=== PATIENT | male | born 1940 | race Caucasian/White ===

== ENCOUNTER 2022-08-15 11:45 | Inpatient (IN) | payer MEDICARE ==
[2022-08-15] MEDS ORDERED: Calcium Carbonate 500 MG ChewTAB PO PRN (18:56)
[2022-08-15] MEDS ORDERED: Ipratropium/Albuterol 3 ML NEB NEB PRN (18:56)
[2022-08-15] MEDS ORDERED: CEFAZOLIN 2 GM VIAL IVPB SCH (19:00)
[2022-08-15] MEDS ORDERED: BISMUTH SUBSALICYLATE 262 MG PO PRN (19:05)
[2022-08-15] MEDS: Acetaminophen 325 MG TAB PO PRN (21:26)
[2022-08-15] MEDS: Atorvastatin Calcium 40 MG TAB PO SCH (21:28)
[2022-08-15] MEDS: CEFAZOLIN 2 GM in Sodium Chloride 0.9% 100 ML IVPB SCH (21:29)
[2022-08-15] MEDS: Polyethylene Glycol 3350 17 GM Packet PO SCH (21:29)
[2022-08-15] MEDS: traZODone HCl 50 MG TAB PO PRN (23:58)
[2022-08-16] MEDS: Levothyroxine Sodium 88 MCG TAB PO SCH (05:56)
[2022-08-16] MEDS: CEFAZOLIN 2 GM in Sodium Chloride 0.9% 100 ML IVPB SCH ×3 (05:56→21:18)
[2022-08-16] MEDS: Acetaminophen 325 MG TAB PO PRN (05:56)
[2022-08-16] MEDS: Carvedilol 3.125 MG TAB PO SCH ×2 (09:03→17:00)
[2022-08-16] MEDS: Aspirin 81 mg Enteric Coated Tablet PO SCH (09:03)
[2022-08-16] MEDS: Clopidogrel Bisulfate 75 MG TAB PO SCH (09:03)
[2022-08-16] MEDS: Polyethylene Glycol 3350 17 GM Packet PO SCH ×2 (09:03→19:37)
[2022-08-16] MEDS: HYDROcodone/Acetaminophen 5/325 mg Tablet PO PRN (19:37)
[2022-08-16] MEDS: Atorvastatin Calcium 40 MG TAB PO SCH (19:37)
[2022-08-17] MEDS: CEFAZOLIN 2 GM in Sodium Chloride 0.9% 100 ML IVPB SCH ×3 (05:16→21:40)
[2022-08-17] MEDS: Levothyroxine Sodium 88 MCG TAB PO SCH (05:17)
[2022-08-17] MEDS: Acetaminophen 325 MG TAB PO PRN ×2 (08:04→21:40)
[2022-08-17] MEDS: Aspirin 81 mg Enteric Coated Tablet PO SCH (08:05)
[2022-08-17] MEDS: Clopidogrel Bisulfate 75 MG TAB PO SCH (08:05)
[2022-08-17] MEDS: Carvedilol 3.125 MG TAB PO SCH ×2 (08:05→16:43)
[2022-08-17] MEDS: Polyethylene Glycol 3350 17 GM Packet PO SCH ×2 (14:14→21:41)
[2022-08-17] MEDS ORDERED: DAPTOmycin 700 MG in Sodium Chloride 0.9% 100 ML IVPB SCH (17:00)
[2022-08-17] MEDS: Atorvastatin Calcium 40 MG TAB PO SCH (21:40)
[2022-08-18 05:15] LABS: #Eosinphils 0.1 thou/uL (0.0-0.7); #Monocytes 0.7 thou/uL (0.11-0.59); #Neutrophils 7.2 thou/uL (1.40-6.50); %Basophils 0.5 % (0.0-1.0); %Eosinophils 1.6 % (0.0-10.0); %Monocytes 7.6 % (0.0-10.0); %Neutrophils 79.3 % (42.0-75.0); Hemoglobin 7.3 g/dL (14.0-18.0); Mean Corpuscular HGB CONC 32.7 g/dL (32.0-36.0); Mean Corpuscular Hemoglobin 30.7 pg (27.0-31.0); Mean Corpuscular Volume 93.8 fl (78.0-98.0); Mean Platelet Volume 5.9 fL (7.4-10.4); Platelet Count 466 10x3/uL (130-400); RBC Distribution Width 16.5 % (11.5-14.5); Red Blood Cell (RBC) Count 2.37 mill/uL (4.70-6.10); White Blood Cell (WBC) Count 9.1 10x3/uL (4.8-10.8)
[2022-08-18 05:30] LABS: ALT (SGPT) Less than 7 U/L (8-55); AST (SGOT) 31 U/L (5-34); Albumin 2.4 g/dL (3.4-4.8); Alkaline Phosphatase 52 U/L (40-110); Anion Gap 12 mmol/L (10-20); BUN (Urea Nitrogen) 16 mg/dL (8.4-25.7); Bilirubin, Total 0.5 mg/dL (0.2-1.2); Calc. Creatinine Clearance 45 mL/min (70-130); Calcium 7.6 mg/dL (7.8-10.44); Carbon Dioxide 22 mmol/L (23-31); Chloride 106 mmol/L (98-107); Estimated GFR 87; Globulin 3.7 g/dL (2.4-3.5); Glucose 128 mg/dL (83-110); Potassium 3.7 mmol/L (3.5-5.1); Protein, Total 6.1 g/dL (5.8-8.1); Sodium 136 mmol/L (136-145)
[2022-08-18] MEDS: Levothyroxine Sodium 88 MCG TAB PO SCH (05:46)
[2022-08-18] MEDS: CEFAZOLIN 2 GM in Sodium Chloride 0.9% 100 ML IVPB SCH ×3 (05:46→21:11)
[2022-08-18] MEDS: Acetaminophen 325 MG TAB PO PRN ×2 (10:23→20:56)
[2022-08-18] MEDS: Carvedilol 3.125 MG TAB PO SCH ×2 (10:24→17:34)
[2022-08-18] MEDS: Aspirin 81 mg Enteric Coated Tablet PO SCH (10:24)
[2022-08-18] MEDS: Clopidogrel Bisulfate 75 MG TAB PO SCH (10:24)
[2022-08-18] MEDS: Polyethylene Glycol 3350 17 GM Packet PO SCH ×2 (10:25→21:12)
[2022-08-18] MEDS: Atorvastatin Calcium 40 MG TAB PO SCH (20:56)
[2022-08-19] MEDS: Acetaminophen 325 MG TAB PO PRN ×3 (01:04→20:13)
[2022-08-19] MEDS: CEFAZOLIN 2 GM in Sodium Chloride 0.9% 100 ML IVPB SCH ×3 (05:42→21:53)
[2022-08-19] MEDS: Levothyroxine Sodium 88 MCG TAB PO SCH (05:43)
[2022-08-19] MEDS: Clopidogrel Bisulfate 75 MG TAB PO SCH (08:55)
[2022-08-19] MEDS: Carvedilol 3.125 MG TAB PO SCH ×2 (08:55→16:41)
[2022-08-19] MEDS: Aspirin 81 mg Enteric Coated Tablet PO SCH (08:55)
[2022-08-19] MEDS: Polyethylene Glycol 3350 17 GM Packet PO SCH ×2 (08:55→20:13)
[2022-08-19] MEDS: Atorvastatin Calcium 40 MG TAB PO SCH (20:13)
[2022-08-19] MEDS: HYDROcodone/Acetaminophen 5/325 mg Tablet PO PRN (22:00)
[2022-08-20] MEDS: CEFAZOLIN 2 GM in Sodium Chloride 0.9% 100 ML IVPB SCH ×3 (05:29→21:35)
[2022-08-20] MEDS: Levothyroxine Sodium 88 MCG TAB PO SCH (05:29)
[2022-08-20] MEDS: Aspirin 81 mg Enteric Coated Tablet PO SCH (08:58)
[2022-08-20] MEDS: Carvedilol 3.125 MG TAB PO SCH ×2 (08:58→17:06)
[2022-08-20] MEDS: Clopidogrel Bisulfate 75 MG TAB PO SCH (08:58)
[2022-08-20] MEDS: Acetaminophen 325 MG TAB PO PRN ×2 (09:00→21:40)
[2022-08-20] MEDS: Polyethylene Glycol 3350 17 GM Packet PO SCH ×2 (09:02→23:33)
[2022-08-20] MEDS: Atorvastatin Calcium 40 MG TAB PO SCH (21:40)
[2022-08-20] MEDS: traZODone HCl 50 MG TAB PO PRN (21:42)
[2022-08-21] MEDS: CEFAZOLIN 2 GM in Sodium Chloride 0.9% 100 ML IVPB SCH ×3 (05:24→20:55)
[2022-08-21] MEDS: Levothyroxine Sodium 88 MCG TAB PO SCH (05:25)
[2022-08-21] MEDS: Clopidogrel Bisulfate 75 MG TAB PO SCH (10:28)
[2022-08-21] MEDS: Carvedilol 3.125 MG TAB PO SCH ×2 (10:29→17:15)
[2022-08-21] MEDS: Acetaminophen 325 MG TAB PO PRN ×2 (10:29→20:54)
[2022-08-21] MEDS: Polyethylene Glycol 3350 17 GM Packet PO SCH ×2 (10:30→22:45)
[2022-08-21] MEDS: Aspirin 81 mg Enteric Coated Tablet PO SCH (10:31)
[2022-08-21] MEDS ORDERED: Lansoprazole 3 MG/ML ORAL SUSPENSION PO SCH (11:15)
[2022-08-21] MEDS ORDERED: Aspirin Chewable 81 MG TAB PO SCH (11:15)
[2022-08-21] MEDS: traZODone HCl 50 MG TAB PO PRN (20:55)
[2022-08-21] MEDS: Atorvastatin Calcium 40 MG TAB PO SCH (20:55)
[2022-08-22] MEDS: Levothyroxine Sodium 88 MCG TAB PO SCH (05:42)
[2022-08-22] MEDS: CEFAZOLIN 2 GM in Sodium Chloride 0.9% 100 ML IVPB SCH ×3 (05:42→21:14)
[2022-08-22] MEDS: Acetaminophen 325 MG TAB PO PRN ×2 (06:33→21:15)
[2022-08-22] MEDS: Lansoprazole 3 MG/ML ORAL SUSPENSION PO SCH (08:15)
[2022-08-22] MEDS: Aspirin Chewable 81 MG TAB PO SCH (08:16)
[2022-08-22] MEDS: Clopidogrel Bisulfate 75 MG TAB PO SCH (08:16)
[2022-08-22] MEDS: Carvedilol 3.125 MG TAB PO SCH ×2 (08:16→17:00)
[2022-08-22] MEDS: Polyethylene Glycol 3350 17 GM Packet PO SCH ×2 (08:17→21:39)
[2022-08-22] MEDS: Atorvastatin Calcium 40 MG TAB PO SCH (21:14)
[2022-08-22] MEDS: traZODone HCl 50 MG TAB PO PRN (21:15)
[2022-08-23] MEDS: Acetaminophen 325 MG TAB PO PRN (05:35)
[2022-08-23] MEDS: Levothyroxine Sodium 88 MCG TAB PO SCH (05:36)
[2022-08-23] MEDS: CEFAZOLIN 2 GM in Sodium Chloride 0.9% 100 ML IVPB SCH ×3 (05:36→21:07)
[2022-08-23] MEDS: Lansoprazole 3 MG/ML ORAL SUSPENSION PO SCH (09:00)
[2022-08-23] MEDS: Clopidogrel Bisulfate 75 MG TAB PO SCH (11:27)
[2022-08-23] MEDS: Aspirin Chewable 81 MG TAB PO SCH (11:27)
[2022-08-23] MEDS: Carvedilol 3.125 MG TAB PO SCH ×2 (11:27→17:15)
[2022-08-23] MEDS: Saccharomyces boulardii 250 MG CAP PO SCH (11:27)
[2022-08-23] MEDS: Polyethylene Glycol 3350 17 GM Packet PO SCH ×2 (11:28→21:07)
[2022-08-23] MEDS: HYDROcodone/Acetaminophen 5/325 mg Tablet PO PRN ×2 (15:23→21:04)
[2022-08-23] MEDS: traZODone HCl 50 MG TAB PO PRN (21:06)
[2022-08-23] MEDS: Atorvastatin Calcium 40 MG TAB PO SCH (21:07)
[2022-08-24] MEDS: CEFAZOLIN 2 GM in Sodium Chloride 0.9% 100 ML IVPB SCH ×3 (05:22→22:19)
[2022-08-24] MEDS: Levothyroxine Sodium 88 MCG TAB PO SCH (05:28)
[2022-08-24] MEDS: Carvedilol 3.125 MG TAB PO SCH ×2 (08:03→19:09)
[2022-08-24] MEDS: Aspirin Chewable 81 MG TAB PO SCH (11:37)
[2022-08-24] MEDS: Lansoprazole 3 MG/ML ORAL SUSPENSION PO SCH (11:37)
[2022-08-24] MEDS: Clopidogrel Bisulfate 75 MG TAB PO SCH (11:37)
[2022-08-24] MEDS: Saccharomyces boulardii 250 MG CAP PO SCH (11:38)
[2022-08-24] MEDS: Polyethylene Glycol 3350 17 GM Packet PO SCH ×2 (11:38→21:54)
[2022-08-24] MEDS: Atorvastatin Calcium 40 MG TAB PO SCH ×2 (21:54→22:19)
[2022-08-24] MEDS: HYDROcodone/Acetaminophen 5/325 mg Tablet PO PRN (22:24)
[2022-08-24] MEDS: traZODone HCl 50 MG TAB PO PRN (22:25)
[2022-08-25] MEDS: CEFAZOLIN 2 GM in Sodium Chloride 0.9% 100 ML IVPB SCH ×3 (05:00→21:05)
[2022-08-25] MEDS: Levothyroxine Sodium 88 MCG TAB PO SCH (05:02)
[2022-08-25 05:49] LABS: #Basophils 0.1 thou/uL (0.0-0.2); #Eosinphils 0.2 thou/uL (0.0-0.7); #Monocytes 0.4 thou/uL (0.11-0.59); #Neutrophils 3.5 thou/uL (1.40-6.50); %Basophils 1.5 % (0.0-1.0); %Eosinophils 4.1 % (0.0-10.0); %Lymphocytes 18.9 % (21.0-51.0); %Monocytes 8.1 % (0.0-10.0); %Neutrophils 67.3 % (42.0-75.0); Hemoglobin 7.8 g/dL (14.0-18.0); Mean Corpuscular HGB CONC 31.1 g/dL (32.0-36.0); Mean Corpuscular Hemoglobin 30.5 pg (27.0-31.0); Mean Corpuscular Volume 97.9 fl (78.0-98.0); Mean Platelet Volume 6.1 fL (7.4-10.4); Platelet Count 449 10x3/uL (130-400); RBC Distribution Width 17.8 % (11.5-14.5); Red Blood Cell (RBC) Count 2.57 mill/uL (4.70-6.10); White Blood Cell (WBC) Count 5.3 10x3/uL (4.8-10.8)
[2022-08-25 06:08] LABS: ALT (SGPT) Less than 7 U/L (8-55); AST (SGOT) 31 U/L (5-34); Albumin 2.6 g/dL (3.4-4.8); Alkaline Phosphatase 62 U/L (40-110); Anion Gap 13 mmol/L (10-20); BUN (Urea Nitrogen) 12 mg/dL (8.4-25.7); Bilirubin, Total 0.4 mg/dL (0.2-1.2); Calc. Creatinine Clearance 43 mL/min (70-130); Calcium 7.8 mg/dL (7.8-10.44); Carbon Dioxide 24 mmol/L (23-31); Chloride 105 mmol/L (98-107); Estimated GFR 86; Glucose 94 mg/dL (83-110); Potassium 3.6 mmol/L (3.5-5.1); Protein, Total 6.6 g/dL (5.8-8.1); Sodium 138 mmol/L (136-145)
[2022-08-25] MEDS: Saccharomyces boulardii 250 MG CAP PO SCH (08:20)
[2022-08-25] MEDS: Lansoprazole 3 MG/ML ORAL SUSPENSION PO SCH (08:20)
[2022-08-25] MEDS: Clopidogrel Bisulfate 75 MG TAB PO SCH (08:20)
[2022-08-25] MEDS: Carvedilol 3.125 MG TAB PO SCH ×2 (08:21→17:57)
[2022-08-25] MEDS: Aspirin Chewable 81 MG TAB PO SCH (08:21)
[2022-08-25] MEDS: Polyethylene Glycol 3350 17 GM Packet PO SCH ×2 (08:21→20:00)
[2022-08-25] MEDS: Acetaminophen 325 MG TAB PO PRN (08:27)
[2022-08-25] MEDS: Atorvastatin Calcium 40 MG TAB PO SCH (21:04)
[2022-08-25] MEDS: traZODone HCl 50 MG TAB PO PRN (21:05)
[2022-08-25] MEDS: HYDROcodone/Acetaminophen 5/325 mg Tablet PO PRN (21:05)
[2022-08-26] MEDS: CEFAZOLIN 2 GM in Sodium Chloride 0.9% 100 ML IVPB SCH ×3 (05:01→20:59)
[2022-08-26] MEDS: Levothyroxine Sodium 88 MCG TAB PO SCH (05:01)
[2022-08-26] MEDS: Clopidogrel Bisulfate 75 MG TAB PO SCH (08:21)
[2022-08-26] MEDS: Lansoprazole 3 MG/ML ORAL SUSPENSION PO SCH (08:21)
[2022-08-26] MEDS: Carvedilol 3.125 MG TAB PO SCH ×2 (08:21→16:46)
[2022-08-26] MEDS: Aspirin Chewable 81 MG TAB PO SCH (08:21)
[2022-08-26] MEDS: Saccharomyces boulardii 250 MG CAP PO SCH (08:21)
[2022-08-26] MEDS: Polyethylene Glycol 3350 17 GM Packet PO SCH ×2 (08:22→21:35)
[2022-08-26] MEDS: Atorvastatin Calcium 40 MG TAB PO SCH (20:58)
[2022-08-26] MEDS: HYDROcodone/Acetaminophen 5/325 mg Tablet PO PRN (20:59)
[2022-08-27] MEDS: CEFAZOLIN 2 GM in Sodium Chloride 0.9% 100 ML IVPB SCH ×3 (05:14→21:07)
[2022-08-27] MEDS: Levothyroxine Sodium 88 MCG TAB PO SCH (05:14)
[2022-08-27] MEDS: Polyethylene Glycol 3350 17 GM Packet PO SCH ×2 (08:47→21:00)
[2022-08-27] MEDS: Lansoprazole 3 MG/ML ORAL SUSPENSION PO SCH (08:47)
[2022-08-27] MEDS: Saccharomyces boulardii 250 MG CAP PO SCH (08:48)
[2022-08-27] MEDS: Clopidogrel Bisulfate 75 MG TAB PO SCH (08:48)
[2022-08-27] MEDS: Aspirin Chewable 81 MG TAB PO SCH (08:48)
[2022-08-27] MEDS: Carvedilol 3.125 MG TAB PO SCH ×2 (08:48→17:19)
[2022-08-27] MEDS: Atorvastatin Calcium 40 MG TAB PO SCH (21:08)
[2022-08-27] MEDS: HYDROcodone/Acetaminophen 5/325 mg Tablet PO PRN (21:08)
[2022-08-27] MEDS: traZODone HCl 50 MG TAB PO PRN (21:09)
[2022-08-28] MEDS: Levothyroxine Sodium 88 MCG TAB PO SCH (05:41)
[2022-08-28] MEDS: CEFAZOLIN 2 GM in Sodium Chloride 0.9% 100 ML IVPB SCH ×3 (05:41→21:07)
[2022-08-28] MEDS: HYDROcodone/Acetaminophen 5/325 mg Tablet PO PRN ×2 (07:19→21:07)
[2022-08-28] MEDS: Lansoprazole 3 MG/ML ORAL SUSPENSION PO SCH (08:54)
[2022-08-28] MEDS: Aspirin Chewable 81 MG TAB PO SCH (08:55)
[2022-08-28] MEDS: Polyethylene Glycol 3350 17 GM Packet PO SCH ×2 (08:55→21:12)
[2022-08-28] MEDS: Clopidogrel Bisulfate 75 MG TAB PO SCH (08:55)
[2022-08-28] MEDS: Carvedilol 3.125 MG TAB PO SCH ×2 (08:55→17:16)
[2022-08-28] MEDS: Saccharomyces boulardii 250 MG CAP PO SCH (08:55)
[2022-08-28] MEDS: traZODone HCl 50 MG TAB PO PRN (21:07)
[2022-08-28] MEDS: Atorvastatin Calcium 40 MG TAB PO SCH (21:07)
[2022-08-28 21:49] VITALS: BMI 19.6
[2022-08-29] MEDS: CEFAZOLIN 2 GM in Sodium Chloride 0.9% 100 ML IVPB SCH ×3 (05:05→21:11)
[2022-08-29] MEDS: Levothyroxine Sodium 88 MCG TAB PO SCH (05:05)
[2022-08-29] MEDS: Clopidogrel Bisulfate 75 MG TAB PO SCH (08:05)
[2022-08-29] MEDS: Lansoprazole 3 MG/ML ORAL SUSPENSION PO SCH (08:05)
[2022-08-29] MEDS: Carvedilol 3.125 MG TAB PO SCH ×2 (08:05→17:05)
[2022-08-29] MEDS: Aspirin Chewable 81 MG TAB PO SCH (08:06)
[2022-08-29] MEDS: Polyethylene Glycol 3350 17 GM Packet PO SCH ×2 (08:06→21:14)
[2022-08-29] MEDS: Saccharomyces boulardii 250 MG CAP PO SCH (08:06)
[2022-08-29] MEDS: Atorvastatin Calcium 40 MG TAB PO SCH (21:11)
[2022-08-29] MEDS: traZODone HCl 50 MG TAB PO PRN (21:11)
[2022-08-30] MEDS: CEFAZOLIN 2 GM in Sodium Chloride 0.9% 100 ML IVPB SCH ×3 (05:19→21:12)
[2022-08-30] MEDS: Levothyroxine Sodium 88 MCG TAB PO SCH (05:20)
[2022-08-30] MEDS: Lansoprazole 3 MG/ML ORAL SUSPENSION PO SCH (08:28)
[2022-08-30] MEDS: Polyethylene Glycol 3350 17 GM Packet PO SCH ×2 (08:30→21:42)
[2022-08-30] MEDS: Saccharomyces boulardii 250 MG CAP PO SCH (08:30)
[2022-08-30] MEDS: Clopidogrel Bisulfate 75 MG TAB PO SCH (08:30)
[2022-08-30] MEDS: Aspirin Chewable 81 MG TAB PO SCH (08:30)
[2022-08-30] MEDS: Carvedilol 3.125 MG TAB PO SCH ×2 (08:30→16:49)
[2022-08-30] MEDS: traZODone HCl 50 MG TAB PO PRN (21:12)
[2022-08-30] MEDS: Atorvastatin Calcium 40 MG TAB PO SCH (21:12)
[2022-08-30] MEDS: HYDROcodone/Acetaminophen 5/325 mg Tablet PO PRN (21:18)
[2022-08-31] MEDS: HYDROcodone/Acetaminophen 5/325 mg Tablet PO PRN ×3 (03:54→21:44)
[2022-08-31] MEDS: CEFAZOLIN 2 GM in Sodium Chloride 0.9% 100 ML IVPB SCH ×3 (05:04→21:34)
[2022-08-31] MEDS: Levothyroxine Sodium 88 MCG TAB PO SCH (05:04)
[2022-08-31] MEDS: Lansoprazole 3 MG/ML ORAL SUSPENSION PO SCH (09:03)
[2022-08-31] MEDS: Saccharomyces boulardii 250 MG CAP PO SCH (09:03)
[2022-08-31] MEDS: Carvedilol 3.125 MG TAB PO SCH ×2 (09:04→17:23)
[2022-08-31] MEDS: Clopidogrel Bisulfate 75 MG TAB PO SCH (09:04)
[2022-08-31] MEDS: Polyethylene Glycol 3350 17 GM Packet PO SCH ×2 (09:05→21:34)
[2022-08-31] MEDS: Aspirin Chewable 81 MG TAB PO SCH (09:07)
[2022-08-31] MEDS: Atorvastatin Calcium 40 MG TAB PO SCH (21:34)
[2022-09-01 05:04] LABS: #Basophils 0.1 thou/uL (0.0-0.2); #Eosinphils 0.5 thou/uL (0.0-0.7); #Lymphocytes 1.1 thou/uL (1.20-3.40); #Monocytes 0.6 thou/uL (0.11-0.59); #Neutrophils 4.3 thou/uL (1.40-6.50); %Basophils 1.1 % (0.0-1.0); %Eosinophils 7.2 % (0.0-10.0); %Lymphocytes 17.2 % (21.0-51.0); %Monocytes 8.9 % (0.0-10.0); %Neutrophils 65.6 % (42.0-75.0); Hemoglobin 8.7 g/dL (14.0-18.0); Mean Corpuscular HGB CONC 31.4 g/dL (32.0-36.0); Mean Corpuscular Hemoglobin 30.1 pg (27.0-31.0); Mean Corpuscular Volume 95.9 fl (78.0-98.0); Mean Platelet Volume 6.2 fL (7.4-10.4); Platelet Count 344 10x3/uL (130-400); RBC Distribution Width 16.9 % (11.5-14.5); Red Blood Cell (RBC) Count 2.88 mill/uL (4.70-6.10); White Blood Cell (WBC) Count 6.5 10x3/uL (4.8-10.8)
[2022-09-01 05:24] LABS: ALT (SGPT) Less than 7 U/L (8-55); AST (SGOT) 25 U/L (5-34); Albumin 2.7 g/dL (3.4-4.8); Alkaline Phosphatase 64 U/L (40-110); Anion Gap 13 mmol/L (10-20); BUN (Urea Nitrogen) 11 mg/dL (8.4-25.7); Bilirubin, Total 0.4 mg/dL (0.2-1.2); Calc. Creatinine Clearance 45 mL/min (70-130); Calcium 7.9 mg/dL (7.8-10.44); Carbon Dioxide 24 mmol/L (23-31); Chloride 106 mmol/L (98-107); Estimated GFR 86; Glucose 99 mg/dL (83-110); Protein, Total 6.7 g/dL (5.8-8.1); Sodium 139 mmol/L (136-145)
[2022-09-01] MEDS: Levothyroxine Sodium 88 MCG TAB PO SCH (05:51)
[2022-09-01] MEDS: CEFAZOLIN 2 GM in Sodium Chloride 0.9% 100 ML IVPB SCH ×3 (05:52→21:07)
[2022-09-01] MEDS: Aspirin Chewable 81 MG TAB PO SCH (08:54)
[2022-09-01] MEDS: Saccharomyces boulardii 250 MG CAP PO SCH (08:54)
[2022-09-01] MEDS: Clopidogrel Bisulfate 75 MG TAB PO SCH (08:54)
[2022-09-01] MEDS: Carvedilol 3.125 MG TAB PO SCH ×2 (08:55→16:53)
[2022-09-01] MEDS: Polyethylene Glycol 3350 17 GM Packet PO SCH (08:55)
[2022-09-01] MEDS: Lansoprazole 3 MG/ML ORAL SUSPENSION PO SCH (08:55)
[2022-09-01] MEDS: HYDROcodone/Acetaminophen 5/325 mg Tablet PO PRN ×2 (17:01→21:06)
[2022-09-01] MEDS: Atorvastatin Calcium 40 MG TAB PO SCH (21:06)
[2022-09-02] MEDS: Polyethylene Glycol 3350 17 GM Packet PO SCH ×3 (02:22→21:12)
[2022-09-02] MEDS: CEFAZOLIN 2 GM in Sodium Chloride 0.9% 100 ML IVPB SCH ×3 (05:38→21:11)
[2022-09-02] MEDS: Levothyroxine Sodium 88 MCG TAB PO SCH (05:38)
[2022-09-02] MEDS: Carvedilol 3.125 MG TAB PO SCH ×2 (09:10→17:12)
[2022-09-02] MEDS: Clopidogrel Bisulfate 75 MG TAB PO SCH (09:10)
[2022-09-02] MEDS: Aspirin Chewable 81 MG TAB PO SCH (09:10)
[2022-09-02] MEDS: Lansoprazole 3 MG/ML ORAL SUSPENSION PO SCH (09:10)
[2022-09-02] MEDS: Saccharomyces boulardii 250 MG CAP PO SCH (09:10)
[2022-09-02] MEDS: Atorvastatin Calcium 40 MG TAB PO SCH (21:11)
[2022-09-03] MEDS: Levothyroxine Sodium 88 MCG TAB PO SCH (05:30)
[2022-09-03] MEDS: CEFAZOLIN 2 GM in Sodium Chloride 0.9% 100 ML IVPB SCH ×3 (05:30→20:54)
[2022-09-03] MEDS: Amlodipine 5 MG TAB PO SCH (09:02)
[2022-09-03] MEDS: Aspirin Chewable 81 MG TAB PO SCH (09:02)
[2022-09-03] MEDS: Lansoprazole 3 MG/ML ORAL SUSPENSION PO SCH (09:05)
[2022-09-03] MEDS: Clopidogrel Bisulfate 75 MG TAB PO SCH (09:05)
[2022-09-03] MEDS: Saccharomyces boulardii 250 MG CAP PO SCH (09:06)
[2022-09-03] MEDS: Carvedilol 3.125 MG TAB PO SCH ×2 (09:06→17:14)
[2022-09-03] MEDS: Polyethylene Glycol 3350 17 GM Packet PO SCH ×2 (09:06→20:54)
[2022-09-03] MEDS: Atorvastatin Calcium 40 MG TAB PO SCH (20:53)
[2022-09-04] MEDS: CEFAZOLIN 2 GM in Sodium Chloride 0.9% 100 ML IVPB SCH ×3 (06:05→21:50)
[2022-09-04] MEDS: Levothyroxine Sodium 88 MCG TAB PO SCH (06:05)
[2022-09-04] MEDS: HYDROcodone/Acetaminophen 5/325 mg Tablet PO PRN (07:40)
[2022-09-04] MEDS: Lansoprazole 3 MG/ML ORAL SUSPENSION PO SCH (08:31)
[2022-09-04] MEDS: Carvedilol 3.125 MG TAB PO SCH ×2 (08:32→17:10)
[2022-09-04] MEDS: Amlodipine 5 MG TAB PO SCH (08:32)
[2022-09-04] MEDS: Aspirin Chewable 81 MG TAB PO SCH (08:32)
[2022-09-04] MEDS: Clopidogrel Bisulfate 75 MG TAB PO SCH (08:32)
[2022-09-04] MEDS: Saccharomyces boulardii 250 MG CAP PO SCH (08:32)
[2022-09-04] MEDS: Polyethylene Glycol 3350 17 GM Packet PO SCH ×2 (08:33→22:48)
[2022-09-04] MEDS: traZODone HCl 50 MG TAB PO PRN (21:50)
[2022-09-04] MEDS: Atorvastatin Calcium 40 MG TAB PO SCH (21:50)
[2022-09-05] MEDS: CEFAZOLIN 2 GM in Sodium Chloride 0.9% 100 ML IVPB SCH ×3 (05:45→21:39)
[2022-09-05] MEDS: Levothyroxine Sodium 88 MCG TAB PO SCH (05:45)
[2022-09-05] MEDS: HYDROcodone/Acetaminophen 5/325 mg Tablet PO PRN ×2 (05:45→19:34)
[2022-09-05] MEDS: Saccharomyces boulardii 250 MG CAP PO SCH (08:18)
[2022-09-05] MEDS: Lansoprazole 3 MG/ML ORAL SUSPENSION PO SCH (08:18)
[2022-09-05] MEDS: Clopidogrel Bisulfate 75 MG TAB PO SCH (08:18)
[2022-09-05] MEDS: Aspirin Chewable 81 MG TAB PO SCH (08:18)
[2022-09-05] MEDS: Carvedilol 3.125 MG TAB PO SCH ×2 (08:19→16:32)
[2022-09-05] MEDS: Amlodipine 5 MG TAB PO SCH (08:19)
[2022-09-05] MEDS: Polyethylene Glycol 3350 17 GM Packet PO SCH ×2 (08:23→21:43)
[2022-09-05] MEDS: traZODone HCl 50 MG TAB PO PRN (21:39)
[2022-09-05] MEDS: Atorvastatin Calcium 40 MG TAB PO SCH (21:39)
[2022-09-06] MEDS: CEFAZOLIN 2 GM in Sodium Chloride 0.9% 100 ML IVPB SCH ×3 (05:13→21:08)
[2022-09-06] MEDS: Levothyroxine Sodium 88 MCG TAB PO SCH (05:13)
[2022-09-06] MEDS: Lansoprazole 3 MG/ML ORAL SUSPENSION PO SCH (08:55)
[2022-09-06] MEDS: Carvedilol 3.125 MG TAB PO SCH ×2 (08:56→17:06)
[2022-09-06] MEDS: Saccharomyces boulardii 250 MG CAP PO SCH (08:56)
[2022-09-06] MEDS: Clopidogrel Bisulfate 75 MG TAB PO SCH (08:56)
[2022-09-06] MEDS: Amlodipine 5 MG TAB PO SCH (08:56)
[2022-09-06] MEDS: Aspirin Chewable 81 MG TAB PO SCH (08:58)
[2022-09-06] MEDS: Polyethylene Glycol 3350 17 GM Packet PO SCH ×2 (08:59→21:09)
[2022-09-06] MEDS: Atorvastatin Calcium 40 MG TAB PO SCH (21:08)
[2022-09-06] MEDS: traZODone HCl 50 MG TAB PO PRN (21:10)
[2022-09-07] MEDS: CEFAZOLIN 2 GM in Sodium Chloride 0.9% 100 ML IVPB SCH ×3 (05:19→21:18)
[2022-09-07] MEDS: Levothyroxine Sodium 88 MCG TAB PO SCH (05:21)
[2022-09-07] MEDS: Lansoprazole 3 MG/ML ORAL SUSPENSION PO SCH (08:44)
[2022-09-07] MEDS: Aspirin Chewable 81 MG TAB PO SCH (08:44)
[2022-09-07] MEDS: Amlodipine 5 MG TAB PO SCH (08:45)
[2022-09-07] MEDS: Clopidogrel Bisulfate 75 MG TAB PO SCH (08:47)
[2022-09-07] MEDS: Carvedilol 3.125 MG TAB PO SCH ×2 (08:47→17:04)
[2022-09-07] MEDS: Saccharomyces boulardii 250 MG CAP PO SCH (08:47)
[2022-09-07] MEDS: Polyethylene Glycol 3350 17 GM Packet PO SCH ×2 (08:47→21:19)
[2022-09-07] MEDS: Atorvastatin Calcium 40 MG TAB PO SCH (21:19)
[2022-09-07] MEDS: traZODone HCl 50 MG TAB PO PRN (21:20)
[2022-09-08] MEDS: Levothyroxine Sodium 88 MCG TAB PO SCH (05:24)
[2022-09-08] MEDS: CEFAZOLIN 2 GM in Sodium Chloride 0.9% 100 ML IVPB SCH ×3 (05:24→21:07)
[2022-09-08 05:43] LABS: #Basophils 0.1 thou/uL (0.0-0.2); #Eosinphils 0.2 thou/uL (0.0-0.7); #Lymphocytes 1.2 thou/uL (1.20-3.40); #Monocytes 0.5 thou/uL (0.11-0.59); #Neutrophils 4.4 thou/uL (1.40-6.50); %Lymphocytes 18.7 % (21.0-51.0); %Monocytes 8.5 % (0.0-10.0); %Neutrophils 68.8 % (42.0-75.0); Mean Corpuscular HGB CONC 30.1 g/dL (32.0-36.0); Mean Corpuscular Hemoglobin 29.8 pg (27.0-31.0); Mean Corpuscular Volume 98.8 fl (78.0-98.0); Mean Platelet Volume 7.4 fL (7.4-10.4); Platelet Count 296 10x3/uL (130-400); RBC Distribution Width 16.2 % (11.5-14.5); White Blood Cell (WBC) Count 6.4 10x3/uL (4.8-10.8)
[2022-09-08 06:20] LABS: ALT (SGPT) Less than 7 U/L (8-55); AST (SGOT) 21 U/L (5-34); Albumin 2.9 g/dL (3.4-4.8); Alkaline Phosphatase 64 U/L (40-110); Anion Gap 12 mmol/L (10-20); BUN (Urea Nitrogen) 14 mg/dL (8.4-25.7); Bilirubin, Total 0.4 mg/dL (0.2-1.2); Calc. Creatinine Clearance 47 mL/min (70-130); Carbon Dioxide 25 mmol/L (23-31); Chloride 106 mmol/L (98-107); Estimated GFR 87; Globulin 3.9 g/dL (2.4-3.5); Glucose 85 mg/dL (83-110); Potassium 3.8 mmol/L (3.5-5.1); Protein, Total 6.8 g/dL (5.8-8.1); Sodium 139 mmol/L (136-145)
[2022-09-08] MEDS: Aspirin Chewable 81 MG TAB PO SCH (12:09)
[2022-09-08] MEDS: Carvedilol 3.125 MG TAB PO SCH ×2 (12:09→19:24)
[2022-09-08] MEDS: Polyethylene Glycol 3350 17 GM Packet PO SCH ×2 (12:09→21:07)
[2022-09-08] MEDS: Clopidogrel Bisulfate 75 MG TAB PO SCH (12:09)
[2022-09-08] MEDS: Saccharomyces boulardii 250 MG CAP PO SCH (12:09)
[2022-09-08] MEDS: Amlodipine 5 MG TAB PO SCH (12:10)
[2022-09-08] MEDS: Lansoprazole 3 MG/ML ORAL SUSPENSION PO SCH (12:14)
[2022-09-08] MEDS: Atorvastatin Calcium 40 MG TAB PO SCH (21:07)
[2022-09-08] MEDS: traZODone HCl 50 MG TAB PO PRN (21:07)
[2022-09-09] MEDS: HYDROcodone/Acetaminophen 5/325 mg Tablet PO PRN (04:14)
[2022-09-09] MEDS: Levothyroxine Sodium 88 MCG TAB PO SCH (04:14)
[2022-09-09] MEDS: CEFAZOLIN 2 GM in Sodium Chloride 0.9% 100 ML IVPB SCH ×3 (05:09→21:14)
[2022-09-09] MEDS: Carvedilol 3.125 MG TAB PO SCH ×2 (08:52→16:55)
[2022-09-09] MEDS: Saccharomyces boulardii 250 MG CAP PO SCH (08:52)
[2022-09-09] MEDS: Clopidogrel Bisulfate 75 MG TAB PO SCH (08:53)
[2022-09-09] MEDS: Amlodipine 5 MG TAB PO SCH (08:53)
[2022-09-09] MEDS: Lansoprazole 3 MG/ML ORAL SUSPENSION PO SCH (08:54)
[2022-09-09] MEDS: Polyethylene Glycol 3350 17 GM Packet PO SCH ×2 (08:54→21:25)
[2022-09-09] MEDS: Aspirin Chewable 81 MG TAB PO SCH (09:00)
[2022-09-09] MEDS: Atorvastatin Calcium 40 MG TAB PO SCH (21:14)
[2022-09-09] MEDS: traZODone HCl 50 MG TAB PO PRN (21:14)
[2022-09-10] MEDS: Levothyroxine Sodium 88 MCG TAB PO SCH (05:31)
[2022-09-10] MEDS: CEFAZOLIN 2 GM in Sodium Chloride 0.9% 100 ML IVPB SCH ×3 (05:31→21:00)
[2022-09-10] MEDS: Saccharomyces boulardii 250 MG CAP PO SCH (09:30)
[2022-09-10] MEDS: Aspirin Chewable 81 MG TAB PO SCH (09:30)
[2022-09-10] MEDS: Carvedilol 3.125 MG TAB PO SCH ×2 (09:31→17:42)
[2022-09-10] MEDS: Amlodipine 5 MG TAB PO SCH (09:31)
[2022-09-10] MEDS: Lansoprazole 3 MG/ML ORAL SUSPENSION PO SCH (09:31)
[2022-09-10] MEDS: Clopidogrel Bisulfate 75 MG TAB PO SCH (09:31)
[2022-09-10] MEDS: Polyethylene Glycol 3350 17 GM Packet PO SCH ×2 (09:31→21:00)
[2022-09-10] MEDS: traZODone HCl 50 MG TAB PO PRN (21:00)
[2022-09-10] MEDS: Atorvastatin Calcium 40 MG TAB PO SCH (21:00)
[2022-09-11] MEDS: CEFAZOLIN 2 GM in Sodium Chloride 0.9% 100 ML IVPB SCH ×3 (05:23→21:39)
[2022-09-11] MEDS: Levothyroxine Sodium 88 MCG TAB PO SCH (05:23)
[2022-09-11] MEDS: Saccharomyces boulardii 250 MG CAP PO SCH (08:55)
[2022-09-11] MEDS: Clopidogrel Bisulfate 75 MG TAB PO SCH (08:55)
[2022-09-11] MEDS: Lansoprazole 3 MG/ML ORAL SUSPENSION PO SCH (08:55)
[2022-09-11] MEDS: Carvedilol 3.125 MG TAB PO SCH ×2 (08:56→16:29)
[2022-09-11] MEDS: Amlodipine 5 MG TAB PO SCH (08:56)
[2022-09-11] MEDS: Aspirin Chewable 81 MG TAB PO SCH (09:01)
[2022-09-11] MEDS: Polyethylene Glycol 3350 17 GM Packet PO SCH ×2 (09:01→21:00)
[2022-09-11] MEDS: traZODone HCl 50 MG TAB PO PRN (21:38)
[2022-09-11] MEDS: Atorvastatin Calcium 40 MG TAB PO SCH (21:38)
[2022-09-12] MEDS: Levothyroxine Sodium 88 MCG TAB PO SCH (05:47)
[2022-09-12] MEDS: CEFAZOLIN 2 GM in Sodium Chloride 0.9% 100 ML IVPB SCH ×3 (05:47→21:18)
[2022-09-12] MEDS: Saccharomyces boulardii 250 MG CAP PO SCH (09:21)
[2022-09-12] MEDS: Carvedilol 3.125 MG TAB PO SCH ×2 (09:21→17:16)
[2022-09-12] MEDS: Amlodipine 5 MG TAB PO SCH (09:21)
[2022-09-12] MEDS: Aspirin Chewable 81 MG TAB PO SCH (09:21)
[2022-09-12] MEDS: Clopidogrel Bisulfate 75 MG TAB PO SCH (09:21)
[2022-09-12] MEDS: Polyethylene Glycol 3350 17 GM Packet PO SCH ×2 (17:16→21:00)
[2022-09-12] MEDS: traZODone HCl 50 MG TAB PO PRN (21:18)
[2022-09-12] MEDS: Atorvastatin Calcium 40 MG TAB PO SCH (21:18)
[2022-09-13] MEDS: Levothyroxine Sodium 88 MCG TAB PO SCH (05:06)
[2022-09-13] MEDS: CEFAZOLIN 2 GM in Sodium Chloride 0.9% 100 ML IVPB SCH ×3 (05:07→20:55)
[2022-09-13] MEDS: Amlodipine 5 MG TAB PO SCH (08:52)
[2022-09-13] MEDS: Aspirin Chewable 81 MG TAB PO SCH (08:53)
[2022-09-13] MEDS: Carvedilol 3.125 MG TAB PO SCH ×2 (08:54→17:10)
[2022-09-13] MEDS: Polyethylene Glycol 3350 17 GM Packet PO SCH ×2 (08:54→20:16)
[2022-09-13] MEDS: Saccharomyces boulardii 250 MG CAP PO SCH (08:54)
[2022-09-13] MEDS: Clopidogrel Bisulfate 75 MG TAB PO SCH (08:54)
[2022-09-13] MEDS: Atorvastatin Calcium 40 MG TAB PO SCH (20:07)
[2022-09-14] MEDS: Levothyroxine Sodium 88 MCG TAB PO SCH (05:35)
[2022-09-14] MEDS: CEFAZOLIN 2 GM in Sodium Chloride 0.9% 100 ML IVPB SCH ×3 (05:37→21:12)
[2022-09-14] MEDS: Carvedilol 3.125 MG TAB PO SCH ×2 (08:53→17:20)
[2022-09-14] MEDS: Clopidogrel Bisulfate 75 MG TAB PO SCH (08:53)
[2022-09-14] MEDS: Saccharomyces boulardii 250 MG CAP PO SCH (08:53)
[2022-09-14] MEDS: Aspirin Chewable 81 MG TAB PO SCH (08:54)
[2022-09-14] MEDS: Amlodipine 5 MG TAB PO SCH (08:54)
[2022-09-14] MEDS: Polyethylene Glycol 3350 17 GM Packet PO SCH ×2 (08:56→21:13)
[2022-09-14] MEDS: Atorvastatin Calcium 40 MG TAB PO SCH (21:12)
[2022-09-15] MEDS: CEFAZOLIN 2 GM in Sodium Chloride 0.9% 100 ML IVPB SCH ×3 (05:02→21:31)
[2022-09-15] MEDS: Levothyroxine Sodium 88 MCG TAB PO SCH (05:02)
[2022-09-15 05:06] LABS: #Basophils 0.1 thou/uL (0.0-0.2); #Eosinphils 0.8 thou/uL (0.0-0.7); #Lymphocytes 1.4 thou/uL (1.20-3.40); #Monocytes 0.6 thou/uL (0.11-0.59); #Neutrophils 5.4 thou/uL (1.40-6.50); %Basophils 0.9 % (0.0-1.0); %Eosinophils 9.4 % (0.0-10.0); %Lymphocytes 16.6 % (21.0-51.0); %Monocytes 7.3 % (0.0-10.0); %Neutrophils 65.9 % (42.0-75.0); Hemoglobin 10.2 g/dL (14.0-18.0); Mean Corpuscular Hemoglobin 29.8 pg (27.0-31.0); Mean Corpuscular Volume 95.9 fl (78.0-98.0); Mean Platelet Volume 6.8 fL (7.4-10.4); Platelet Count 294 10x3/uL (130-400); RBC Distribution Width 15.1 % (11.5-14.5); Red Blood Cell (RBC) Count 3.43 mill/uL (4.70-6.10); White Blood Cell (WBC) Count 8.2 10x3/uL (4.8-10.8)
[2022-09-15 05:24] LABS: ALT (SGPT) Less than 7 U/L (8-55); AST (SGOT) 19 U/L (5-34); Albumin 3.1 g/dL (3.4-4.8); Alkaline Phosphatase 69 U/L (40-110); Anion Gap 13 mmol/L (10-20); BUN (Urea Nitrogen) 16 mg/dL (8.4-25.7); Bilirubin, Total 0.5 mg/dL (0.2-1.2); Calc. Creatinine Clearance 44 mL/min (70-130); Calcium 8.3 mg/dL (7.8-10.44); Carbon Dioxide 25 mmol/L (23-31); Chloride 107 mmol/L (98-107); Estimated GFR 86; Globulin 4.3 g/dL (2.4-3.5); Glucose 91 mg/dL (83-110); Protein, Total 7.4 g/dL (5.8-8.1); Sodium 141 mmol/L (136-145)
[2022-09-15] MEDS: Carvedilol 3.125 MG TAB PO SCH ×2 (09:15→17:37)
[2022-09-15] MEDS: Amlodipine 5 MG TAB PO SCH (09:15)
[2022-09-15] MEDS: Saccharomyces boulardii 250 MG CAP PO SCH (09:18)
[2022-09-15] MEDS: Aspirin Chewable 81 MG TAB PO SCH (09:18)
[2022-09-15] MEDS: Clopidogrel Bisulfate 75 MG TAB PO SCH (09:19)
[2022-09-15] MEDS: Polyethylene Glycol 3350 17 GM Packet PO SCH ×2 (09:19→21:43)
[2022-09-15] MEDS: traZODone HCl 50 MG TAB PO PRN (21:31)
[2022-09-15] MEDS: Atorvastatin Calcium 40 MG TAB PO SCH (21:31)
[2022-09-16] MEDS: CEFAZOLIN 2 GM in Sodium Chloride 0.9% 100 ML IVPB SCH ×3 (05:25→21:11)
[2022-09-16] MEDS: Levothyroxine Sodium 88 MCG TAB PO SCH (05:26)
[2022-09-16] MEDS: Aspirin Chewable 81 MG TAB PO SCH (09:08)
[2022-09-16] MEDS: Amlodipine 5 MG TAB PO SCH (09:08)
[2022-09-16] MEDS: Saccharomyces boulardii 250 MG CAP PO SCH (09:08)
[2022-09-16] MEDS: Clopidogrel Bisulfate 75 MG TAB PO SCH (09:08)
[2022-09-16] MEDS: Carvedilol 3.125 MG TAB PO SCH ×2 (09:10→16:57)
[2022-09-16] MEDS: Polyethylene Glycol 3350 17 GM Packet PO SCH ×2 (09:11→21:15)
[2022-09-16] MEDS: Atorvastatin Calcium 40 MG TAB PO SCH (21:10)
[2022-09-16] MEDS: traZODone HCl 50 MG TAB PO PRN (21:10)
[2022-09-17] MEDS: Levothyroxine Sodium 88 MCG TAB PO SCH (05:34)
[2022-09-17] MEDS: CEFAZOLIN 2 GM in Sodium Chloride 0.9% 100 ML IVPB SCH ×3 (05:35→21:42)
[2022-09-17] MEDS: Saccharomyces boulardii 250 MG CAP PO SCH (08:46)
[2022-09-17] MEDS: Carvedilol 3.125 MG TAB PO SCH ×2 (08:46→17:05)
[2022-09-17] MEDS: Amlodipine 5 MG TAB PO SCH (08:46)
[2022-09-17] MEDS: Aspirin Chewable 81 MG TAB PO SCH (08:46)
[2022-09-17] MEDS: Clopidogrel Bisulfate 75 MG TAB PO SCH (08:48)
[2022-09-17] MEDS: Polyethylene Glycol 3350 17 GM Packet PO SCH ×2 (08:50→21:50)
[2022-09-17] MEDS: traZODone HCl 50 MG TAB PO PRN (21:42)
[2022-09-17] MEDS: Atorvastatin Calcium 40 MG TAB PO SCH (21:42)
[2022-09-18] MEDS: Levothyroxine Sodium 88 MCG TAB PO SCH (05:30)
[2022-09-18] MEDS: CEFAZOLIN 2 GM in Sodium Chloride 0.9% 100 ML IVPB SCH ×3 (05:30→21:17)
[2022-09-18] MEDS: Amlodipine 5 MG TAB PO SCH (11:18)
[2022-09-18] MEDS: Clopidogrel Bisulfate 75 MG TAB PO SCH (11:18)
[2022-09-18] MEDS: Polyethylene Glycol 3350 17 GM Packet PO SCH ×2 (11:18→20:14)
[2022-09-18] MEDS: Aspirin Chewable 81 MG TAB PO SCH (11:18)
[2022-09-18] MEDS: Saccharomyces boulardii 250 MG CAP PO SCH (11:18)
[2022-09-18] MEDS: Carvedilol 3.125 MG TAB PO SCH ×2 (11:19→17:38)
[2022-09-18] MEDS: Atorvastatin Calcium 40 MG TAB PO SCH (20:14)
[2022-09-18] MEDS: traZODone HCl 50 MG TAB PO PRN (21:17)
[2022-09-19] MEDS: CEFAZOLIN 2 GM in Sodium Chloride 0.9% 100 ML IVPB SCH (05:31)
[2022-09-19] MEDS: Levothyroxine Sodium 88 MCG TAB PO SCH (05:31)
[2022-09-19] MEDS: Saccharomyces boulardii 250 MG CAP PO SCH (08:27)
[2022-09-19] MEDS: Clopidogrel Bisulfate 75 MG TAB PO SCH (08:27)
[2022-09-19] MEDS: Carvedilol 3.125 MG TAB PO SCH ×2 (08:27→17:20)
[2022-09-19] MEDS: Aspirin Chewable 81 MG TAB PO SCH (08:27)
[2022-09-19] MEDS: Amlodipine 5 MG TAB PO SCH (08:31)
[2022-09-19] MEDS: Polyethylene Glycol 3350 17 GM Packet PO SCH ×2 (08:32→21:00)
[2022-09-19] MEDS: traZODone HCl 50 MG TAB PO PRN (20:59)
[2022-09-19] MEDS: Atorvastatin Calcium 40 MG TAB PO SCH (20:59)
[2022-09-20 06:28] VITALS: TEMP 97.5
[2022-09-20] MEDS: Levothyroxine Sodium 88 MCG TAB PO SCH (06:31)
[2022-09-20] MEDS: Carvedilol 3.125 MG TAB PO SCH (07:55)
[2022-09-20] MEDS: Saccharomyces boulardii 250 MG CAP PO SCH (07:55)
[2022-09-20] MEDS: Amlodipine 5 MG TAB PO SCH (07:55)
[2022-09-20] MEDS: Aspirin Chewable 81 MG TAB PO SCH (07:55)
[2022-09-20] MEDS: Clopidogrel Bisulfate 75 MG TAB PO SCH (07:55)
[2022-09-20] MEDS: Polyethylene Glycol 3350 17 GM Packet PO SCH (07:59)
[2022-09-20 08:00] VITALS: BP 160/70
== END 2022-09-20 10:30 | disposition home or self-care (01) | DRG 864 ==
LOC: BURMED 15:40
PROVIDERS: ADMIT Family Medicine; ATTEND Family Medicine
DX: R65.10 Systemic inflammatory response syndrome (SIRS) of non-infectious origin without acute organ dysfunction (principal); M62.82 Rhabdomyolysis; T17.408A Unspecified foreign body in trachea causing other injury, initial encounter; R53.1 Weakness; R13.10 Dysphagia, unspecified; C32.9 Malignant neoplasm of larynx, unspecified; F41.9 Anxiety disorder, unspecified; N40.0 Benign prostatic hyperplasia without lower urinary tract symptoms; I25.10 Atherosclerotic heart disease of native coronary artery without angina pectoris; G89.29 Other chronic pain; K21.9 Gastro-esophageal reflux disease without esophagitis; E78.5 Hyperlipidemia, unspecified; E03.9 Hypothyroidism, unspecified; D64.9 Anemia, unspecified; M19.90 Unspecified osteoarthritis, unspecified site; Z98.49 Cataract extraction status, unspecified eye; Z95.5 Presence of coronary angioplasty implant and graft; Z93.0 Tracheostomy status; I25.2 Old myocardial infarction; Z86.73 Personal history of transient ischemic attack (TIA), and cerebral infarction without residual deficits; Z87.891 Personal history of nicotine dependence
CPT/HCPCS: 36415; 70360; 71045; 80053; 85025; J3490